=== PATIENT | male | born 1970 | race Caucasian/White ===

== ENCOUNTER 2017-01-06 10:18 | Emergency (ER) | payer OTHER ==
[2017-01-06 10:28] VITALS: BP 155/95; PULSE 70; RESP 16; TEMP 98.8; O2SAT 94
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
== END 2017-01-06 11:41 | disposition home or self-care (01) ==
LOC: CED 10:18
PROC: 0HQ1XZZ Repair Face Skin, External Approach (ICD-10-PCS; principal; 2017-01-06)
DX: S01.81XA Laceration without foreign body of other part of head, initial encounter (principal); V18.2XXA Unspecified pedal cyclist injured in noncollision transport accident in nontraffic accident, initial encounter; Z85.828 Personal history of other malignant neoplasm of skin